=== PATIENT | male | born 1955 | race Caucasian/White ===

== ENCOUNTER 2018-08-27 07:02 | Day surgery (SDC) | payer BC ==
[2018-08-25 12:03] VITALS: BMI 33.0
[~2018-08-27 07:02] MED LIST: LACTATED RINGERS 1,000 ML IV SCH
[2018-08-27] MEDS ORDERED: LACTATED RINGERS 1,000 ML IV ONE (07:11)
[2018-08-27 07:28] VITALS: TEMP 96.8
[2018-08-27] MEDS ORDERED: PROPOFOL 10 MG/ML 20 ML VIAL IV ONE (07:49)
[2018-08-27] MEDS ORDERED: LIDOCAINE 1% INJ 10MG/ML (20 ML MDV) ONE (07:49)
--- NOTE | 2018-08-27 07:52 | P.GSHP ---
History of Present Illness H&P Date: 08/27/18 Chief Complaint: Screening colonoscopy This a 62-year-old male presents today for screening colonoscopy. He denies any significant GI complaints. His last colonoscopy over 10 years ago. Past Medical History Past Medical History: Cancer, GERD/Reflux, Hypertension Additional Past Medical History / Comment(s): [employer] ON RX FOR HTN FOR PAST 2 MONTHS. History of Any Multi-Drug Resistant Organisms: None Reported Additional Past Surgical History / Comment(s): COLONOSCOPY Past Anesthesia/Blood Transfusion Reactions: No Reported Reaction Smoking Status: Never smoker - Past Family History Mother Family Medical History: Cancer Medications and Allergies Home Medications Medication Instructions Recorded Confirmed Type Cholecalciferol [Vitamin D3] 1,000 unit PO DAILY 08/25/18 08/27/18 History Esomeprazole Magnesium [NexIUM 20 mg PO DAILY PRN 08/25/18 08/27/18 History 24Hr] Losartan [Cozaar] 25 mg PO DAILY 08/25/18 08/27/18 History Allergies Allergy/AdvReac Type Severity Reaction Status Date / Time No Known Allergies Allergy Verified 08/27/18 07:18 Surgical - Exam Vital Signs Temp Pulse Resp BP Pulse Ox 96.8 F L 81 14 118/73 95 08/27/18 07:20 08/27/18 07:20 08/27/18 07:20 08/27/18 07:20 08/27/18 07:20 - General well developed, well nourished, no distress - Eyes PERRL - ENT normal pinna - Neck no masses - Respiratory normal expansion - Cardiovascular Rhythm: regular - Abdomen Abdomen: soft, non tender Assessment and Plan Assessment: We'll perform screening colonoscopy
[2018-08-27 08:09] VITALS: RESP 16
--- NOTE | 2018-08-27 08:12 | P.OP ---
Date of Procedure: 08/27/18 Preoperative Diagnosis: Screening colonoscopy Postoperative Diagnosis: Diverticulosis Procedure(s) Performed: Colonoscopy Anesthesia: MAC Surgeon: Ibrahima Sy Pathology: none sent Condition: stable Disposition: PACU Description of Procedure: The patient's placed on the endoscopy table in the lateral position. He received IV sedation. Digital rectal exam was performed which revealed no abnormalities. The flexor colonoscope was then placed patient anus passed throughout the entire colon. The ileocecal valve was visualized. The cecum, ascending and transverse colon appeared normal. In the descending and sigmoid colon there is moderate diverticular changes. There is known to diverticulitis. The scope was then brought back the rectum and this appeared normal. Scope was withdrawn for patient.
[2018-08-27 08:30] VITALS: BP 125/80; PULSE 63
== END 2018-08-27 08:51 | disposition home or self-care (01) ==
LOC: ORWHC2ENDO 07:02
PROVIDERS: ATTEND Surgery
DX: Z12.11 Encounter for screening for malignant neoplasm of colon (principal); K57.30 Diverticulosis of large intestine without perforation or abscess without bleeding; K21.9 Gastro-esophageal reflux disease without esophagitis; C91.10 Chronic lymphocytic leukemia of B-cell type not having achieved remission; I12.9 Hypertensive chronic kidney disease with stage 1 through stage 4 chronic kidney disease, or unspecified chronic kidney disease; N18.2 Chronic kidney disease, stage 2 (mild); E66.9 Obesity, unspecified; Z68.33 Body mass index [BMI] 33.0-33.9, adult; R63.4 Abnormal weight loss; Z79.899 Other long term (current) drug therapy
CPT/HCPCS: J2001; J2704; G0121; 45378